=== PATIENT | male | born 1985 | race African-American/Black ===

== ENCOUNTER 2020-11-24 14:09 | Emergency (ER) | payer OTHER ==
[2020-11-24 14:32] VITALS: BP 141/87; PULSE 81; RESP 16; TEMP 98.7
--- NOTE | 2020-11-24 15:00 | XR ---
EXAMINATION TYPE: XR knee complete LT DATE OF EXAM: 11/24/2020 COMPARISON: None HISTORY: Swelling, pain TECHNIQUE: 3 view left knee FINDINGS: No joint effusion is evident. There is some superficial soft tissue swelling. Joint spaces appear preserved. There is a calcification inferior and medial to the patella. This has indistinct neha rders. Small avulsion from the patella should be considered. There is prominent soft tissue swelling at the patella. IMPRESSION: 1. Clinical correlation recommended for chip fracture or avulsion from the medial inferior aspect of patella. Overlying soft tissue swelling is present.
== END 2020-11-24 16:22 | disposition left against medical advice (07) ==
LOC: EC 14:09
DX: M25.562 Pain in left knee (principal); M79.89 Other specified soft tissue disorders; Z53.21 Procedure and treatment not carried out due to patient leaving prior to being seen by health care provider
CPT/HCPCS: 99499

== ENCOUNTER 2020-12-05 17:53 | Emergency (ER) | payer OTHER ==
[2020-12-05 18:08] VITALS: BP 143/85; PULSE 70; RESP 16; TEMP 97.8
--- NOTE | 2020-12-05 18:36 | ED ---
General Adult HPI - General Chief complaint: Extremity Injury, Lower Stated complaint: care home clearance Time Seen by Provider: 12/05/20 18:05 Source: patient, police, RN notes reviewed, old records reviewed Mode of arrival: wheelchair Limitations: no limitations - History of Present Illness Initial comments: This is a 35-year-old male who is under arrest and is going to care home and the police wanted him to be checked out because he is claiming that he cannot walk on his leg and he states that he was already here for his knee x-ray previously. Patient states that he hurt it playing basketball a few weeks ago. Patient states he can't bend it all. Patient states his been no new injury recently from 2 weeks ago. Patient denies any other problems at this time - Related Data Home Medications Medication Instructions Recorded Confirmed No Known Home Medications 09/07/15 09/07/15 Allergies Allergy/AdvReac Type Severity Reaction Status Date / Time Fish Containing Products Allergy Unknown Verified 12/05/20 18:05 [Fish] Review of Systems ROS Statement: Those systems with pertinent positive or pertinent negative responses have been documented in the HPI. ROS Other: All systems not noted in ROS Statement are negative. Past Medical History Past Medical History: No Reported History History of Any Multi-Drug Resistant Organisms: None Reported Past Surgical History: No Surgical Hx Reported Past Psychological History: No Psychological Hx Reported Smoking Status: Current every day smoker Past Alcohol Use History: Occasional Past Drug Use History: Marijuana General Exam - General Exam Comments Initial Comments: GENERAL Patient is well-developed and well-nourished. Patient is in mild distress. EYES Patient's pupils are equal and round. Extraocular motion is intact SKIN Unremarkable NEURO The patient is alert and oriented 3 PYSCH Patient has normal interpersonal interactions. MUSCULOSKELETAL Patient has an effusion to his knee and he refuses to move it or allow me to move it for further evaluation. Patient refuses to have the check ligament laxity and is very dramatic when trying to touch at the knee is not red is not warm. Limitations: no limitations Course Vital Signs 12/05/20 18:06 Temperature 97.8 F Pulse Rate 70 Respiratory 16 Rate Blood Pressure 143/85 O2 Sat by Pulse 100 Oximetry Medical Decision Making - Medical Decision Making I reviewed the x-ray from his previous visit which he left AMA without results. Patient will be placed in a knee immobilizer and discharged to police custody. Patient to follow-up with orthopedics. According to police he was walking around on his crutches according to the manager traffic of the facility that he stays in. Disposition Clinical Impression: Effusion, left knee, Patella fracture Disposition: HOME SELF-CARE Instructions (If sedation given, give patient instructions): Patellar Fracture (ED), Swollen Knee Joint (ED) Is patient prescribed a controlled substance at d/c from ED?: No Referrals: George Townsend DO [Doctor of Osteopathic Medicine] - 1-2 days Time of Disposition: 18:36
== END 2020-12-05 19:03 | disposition home or self-care (01) ==
LOC: EC 17:53
DX: S82.002A Unspecified fracture of left patella, initial encounter for closed fracture (principal); F17.200 Nicotine dependence, unspecified, uncomplicated; Z91.013 Allergy to seafood; X58.XXXA Exposure to other specified factors, initial encounter; Y93.67 Activity, basketball
CPT/HCPCS: 99283; L1830; 29505

== ENCOUNTER 2023-05-23 10:51 | Emergency (ER) | payer OTHER ==
[2023-05-23 11:02] VITALS: RESP 18
[2023-05-23] MEDS ORDERED: dexAMETHasone 2 MG TAB PO STA (11:32)
--- NOTE | 2023-05-23 11:36 | ED ---
ENT HPI - General Chief complaint: Upper Respiratory Infection Stated complaint: throat pain Time Seen by Provider: 05/23/23 11:05 Source: patient, RN notes reviewed Mode of arrival: ambulatory Limitations: no limitations - History of Present Illness Initial comments: This is a 38-year-old male who presents to the emergency department for a sore throat. States that this began this morning. This is causing pain when swallowing and trying to speak. Denies any coughing, fevers, or shortness of breath, or associated with this. Also denies a hx of strep throat. MD complaint: sore throat - Related Data Previous Rx's Medication Instructions Recorded Lidocaine Viscous [Xylocaine 5 - 10 ml PO Q4-6H PRN #100 ml 05/23/23 Viscous 2%] Allergies Allergy/AdvReac Type Severity Reaction Status Date / Time Fish Containing Products Allergy Unknown Verified 05/23/23 10:59 [Fish] Review of Systems ROS Statement: Those systems with pertinent positive or pertinent negative responses have been documented in the HPI. ROS Other: All systems not noted in ROS Statement are negative. Past Medical History Past Medical History: No Reported History History of Any Multi-Drug Resistant Organisms: None Reported Past Surgical History: No Surgical Hx Reported Past Psychological History: No Psychological Hx Reported Smoking Status: Current every day smoker Past Alcohol Use History: Occasional Past Drug Use History: Marijuana General Exam Limitations: no limitations General appearance: alert, in no apparent distress Head exam: Present: atraumatic, normocephalic, normal inspection ENT exam: Present: other (Posterior pharyngeal erythema with 2+ tonsillar hypertrophy and exudates.) Respiratory exam: Present: normal lung sounds bilaterally. Absent: respiratory distress, wheezes, rales, rhonchi, stridor Cardiovascular Exam: Present: regular rate, normal rhythm, normal heart sounds. Absent: systolic murmur, diastolic murmur, rubs, gallop, clicks Neurological exam: Present: alert, oriented X3, CN II-XII intact Psychiatric exam: Present: normal affect, normal mood Skin exam: Present: warm, dry, intact, normal color. Absent: rash Course Vital Signs 05/23/23 05/23/23 10:54 13:02 Temperature 98.5 F 98.2 F Pulse Rate 102 H 89 Respiratory 18 18 Rate Blood Pressure 143/72 139/79 O2 Sat by Pulse 99 99 Oximetry Medical Decision Making - Medical Decision Making This is a 38-year-old male who presents to the emergency department for a sore throat. Was pt. sent in by a medical professional or institution? @ -No Did you speak to anyone other than the patient for history? @ -No Did you review nursing and triage notes? @ -Yes, and I agree, it is accurate with regards to the patient's symptoms. Were old charts reviewed? @ -No Differential Diagnosis? @ -Differential Sore Throat: Strep pharyngitis, herpes zoster, COVID, influenza, GERD, allergic rhinitis, mononucleosis, this is not meant to be an all-inclusive list. EKG interpreted by me (3pts min.)? @ -Not obtained X-rays interpreted by me (1pt min.)? @ -Not obtained CT interpreted by me (1pt min.)? @ -Not obtained U/S interpreted by me (1pt. min.)? @ -Not obtained What testing was considered but not performed? (CT, X-rays, U/S, labs)? Why? @ -None What meds were considered but not given? Why? @ -None Did you discuss the management of the patient with other professionals? @ -No Did you reconcile home meds? @ -No Was smoking cessation discussed for >3mins.? @ -I discussed smoking cessation for greater than 3 minutes. The risk of smoking were discussed with the patient including but not limited to risks of cancer, stroke, coronary artery disease and COPD. Also discussed with patient were multiple methods of quitting smoking. Lastly we discussed the financial cost of smoking. Was critical care preformed (if so, how long)? @ -No Were there social determinants of health that impacted care today? How? (Homelessness, low income, unemployed, alcoholism, drug addiction, transportation, low edu. Level, literacy, decrease access to med. care, intermediate, rehab)? @ -No Was there de-escalation of care discussed even if they declined? (Discuss DNR or withdrawal of care, Hospice)? @ -No What co-morbidities impacted this encounter? (DM, HTN, Smoking, COPD, CAD, Cancer, CVA, Hep., AIDS, mental health diagnosis, sleep apnea, morbid obesity)? @ -Smoking Was patient admitted / discharged? @ -Discharged. Rapid strep test negative. Covid, influenza, and RSV testing were negative. He was given a dose of Decadron in the emergency department. Symptoms likely related to a viral pharyngitis. Prescription for viscous lidocaine provided with dosing instructions reviewed. Advised ibuprofen and Tylenol as needed for pain relief and follow up with his primary care provider. Undiagnosed new problem with uncertain prognosis? @ -None Drug Therapy requiring intensive monitoring for toxicity (Heparin, Nitro, Insulin, Cardizem)? @ -None Were any procedures done? @ -None Diagnosis/symptom? @ -Pharyngitis Acute, or Chronic, or Acute on Chronic? @ -Acute Uncomplicated (without systemic symptoms) or Complicated (systemic symptoms)? @ -Uncomplicated Side effects of treatment? @ -None Exacerbation, Progression, or Severe Exacerbation] @ -Not applicable Poses a threat to life or bodily function? @ -No Return precautions reviewed in depth, the patient is instructed to return to the emergency department with any new, worsening, or concerning symptoms. Patient verbalized understanding. This case was discussed in detail with the attending ED physician, Dr. Izaguirre. Presentation, findings, and treatment plan discussed in detail as well. - Lab Data Lab Results 05/23/23 05/23/23 Range/Units 11:08 11:08 Influenza Type A (PCR) Not Detected (Not Detectd) Influenza Type B (PCR) Not Detected (Not Detectd) RSV (PCR) Not Detected (Not Detectd) SARS-CoV-2 (PCR) Not Detected (Not Detectd) Group A Strep (PCR) NOT DETECTED (Not Detectd) Disposition Clinical Impression: Pharyngitis, Nicotine dependence Disposition: HOME SELF-CARE Instructions (If sedation given, give patient instructions): Pharyngitis (ED) Additional Instructions: Return to the emergency department with any new, worsening, or concerning symptoms. You can use the viscous lidocaine daily to help with the sore throat. You can also purchase [id number] anesthetic throat spray. Alternate with ibuprofen and Tylenol as needed for pain relief as well. Follow up with your primary care provider in 1-2 days. Prescriptions: Lidocaine Viscous [Xylocaine Viscous 2%] 5 - 10 ml PO Q4-6H PRN #100 ml PRN Reason: Sore Throat Is patient prescribed a controlled substance at d/c from ED?: No Referrals: None,Stated [Primary Care Provider] - 1-2 days
[2023-05-23 13:04] VITALS: BP 139/79; PULSE 89; TEMP 98.2
== END 2023-05-23 13:45 | disposition home or self-care (01) ==
LOC: EC 10:51
DX: J02.9 Acute pharyngitis, unspecified (principal); F17.200 Nicotine dependence, unspecified, uncomplicated; F12.90 Cannabis use, unspecified, uncomplicated; Z20.822 Contact with and (suspected) exposure to COVID-19
CPT/HCPCS: 87651; 87636; 99283; 99406; J8540